=== PATIENT | female | born 1950 | race Caucasian/White ===

== ENCOUNTER → 2016-09-21 | Outpatient (CLI) | payer BC ==
[2014-09-26 12:30] VITALS: BP 156/73
[~2016-09-21] MED LIST: ALLO300T PO; AMLO1CAP15 PO; ASPI81TA44 PO; ATOR40TA59 PO; CA C1TAB38 PO; CELE200C PO; ESTR1TAB17 PO; FERR159T3 PO; FINA1TAB3 PO; FURO20TA3 PO; GLIM4TAB2 PO; HYOS0.124 PO; LIPITOR80 MG PO; METF10002 PO; METO2.5T PO; MULT-658 PO; OMEG1CAP6 PO; OMEP40CA5 PO; OXYC10TA PO; POLY17PO3 PO; POLY17PO5 PO; POTA15TA9 PO; PREG75CA PO; SOLI10TA PO; SUCR1TAB PO; TAPE100T3 PO; TAPE100T6 PO; TIZA4TAB PO; TIZA4TAB8 PO; TRAZ150T55 PO
--- NOTE | 2016-09-21 16:25 | RAD ---
DATE: 09/21/2016 EXAM: MAMMO JEN SCREENING BILATERAL Bilateral digital screening mammography to include digital breast tomosynthesis (3D mammography) HISTORY: Screening study. COMPARISON: 09/19/2015 This study was interpreted with the benefit of Computerized Aided Detection (CAD). FINDINGS: Digital MLO and CC mammograms of both breasts were obtained. Additionally digital breast tomosynthesis (3D mammography) images of both breasts in the MLO and CC projections were performed. Comparison study is dated 09/19/2015. The breast parenchyma is heterogeneously dense which can obscure a lesion on mammography (breast density code C). No spiculated mass is seen. No malignant appearing calcification or area of architectural distortion is noted. Benign-appearing calcifications are seen and throughout both breasts, unchanged. Digital breast tomosynthesis images demonstrate no spiculated mass or malignant appearing calcification. Since the previous examination there has been no significant interval change. IMPRESSION: BI-RADS Category 1, negative. There is no mammographic evidence of malignancy. Routine yearly screening mammography is recommended. BI-RADS CATEGORY: 1 NEGATIVE RECOMMENDED FOLLOW-UP: 12M 12 MONTH FOLLOW-UP PQRS compliance statement: Patient information was entered into a reminder system with a target due date 09/21/2017 for the next mammogram. Mammography is a sensitive method for finding small breast cancers, but it does not detect them all and is not a substitute for careful clinical examination. A negative mammogram does not negate a clinically suspicious finding and should not result in delay in biopsying a clinically suspicious abnormality. "Our facility is accredited by the [employer] Mammography [employer]."
== END | disposition home or self-care (01) ==
LOC: MAMMO 08:00
PROVIDERS: ATTEND Obstetrics & Gynecology
DX: Z12.31 Encounter for screening mammogram for malignant neoplasm of breast (principal)
CPT/HCPCS: 77063; G0202; 77067

== ENCOUNTER → 2016-10-06 | Outpatient (CLI) | payer BC ==
[2014-09-26 12:30] VITALS: BP 156/73
--- NOTE | 2016-10-06 14:52 | RAD ---
Left tibia and fibula, 2 views, 10/06/2016: History: fall, bruising and swelling No fracture is identified. There is moderate subcutaneous edema about the lower leg. Arterial calcifications are present. IMPRESSION: No acute bony abnormality is detected.
== END | disposition home or self-care (01) ==
LOC: DXRADRC 14:18
PROVIDERS: ATTEND Physician Assistant Medical
DX: M79.662 Pain in left lower leg (principal); R52 Pain, unspecified; W19.XXXA Unspecified fall, initial encounter; Y93.89 Activity, other specified; Y92.89 Other specified places as the place of occurrence of the external cause; Y99.8 Other external cause status
CPT/HCPCS: 73590

== ENCOUNTER → 2016-11-18 | Outpatient (CLI) | payer BC ==
[2014-09-26 12:30] VITALS: BP 156/73
--- NOTE | 2016-11-18 12:06 | RAD ---
Indication chronic pain. Preop. Anticipated operative intervention. AP view of the left shoulder was obtained as well as a Y view and an axillary view. There is slight widening at the AC joint. An acute bony finding is not seen. Significant degenerative change at the glenohumeral joint is not seen.
== END | disposition home or self-care (01) ==
LOC: DXRADRC 10:04
PROVIDERS: ATTEND Orthopaedic Surgery Sports Medicine
DX: M25.512 Pain in left shoulder (principal); G89.29 Other chronic pain
CPT/HCPCS: 73030

== ENCOUNTER → 2017-06-16 | Outpatient (CLI) | payer BC ==
[2014-09-26 12:30] VITALS: BP 156/73
[~2017-06-16] MED LIST changes: -HYOS0.124 PO; +HYOS0.1279 PO; -SOLI10TA PO; +SOLI10TA2 PO; -TAPE100T3 PO; -TAPE100T6 PO; +TAPE100T7 PO; +TAPE100T9 PO; +TRAZ150T49 PO; -TRAZ150T55 PO
--- NOTE | 2017-06-16 14:23 | RAD ---
Ultrasound neck soft tissue Indication: Left neck fullness and soreness for 3 months. Technique: Grayscale and color Doppler ultrasound of the left neck base. Comparison: None Findings: No solid or cystic mass seen in the left neck base. There is a 1.7 x 0.6 x 0.4 cm lymph node in the left neck base. Incidental note made of multiple hypoechoic and cystic nodules in the left thyroid lobe. The dominant cystic nodule measures 7.3 x 10.6 x 0.8 cm with internal calcified septation and echogenic foci suggesting punctate calcifications. Impression: No solid or cystic lesion in the left neck base. Incidental note made of left thyroid nodules. Dedicated thyroid ultrasound recommended.
== END | disposition home or self-care (01) ==
LOC: US 12:30
PROVIDERS: ATTEND Physician Assistant Medical
DX: E04.2 Nontoxic multinodular goiter (principal); M54.2 Cervicalgia
CPT/HCPCS: 76536

== ENCOUNTER → 2017-06-27 | Outpatient (CLI) | payer MEDICARE, BC ==
[2014-09-26 12:30] VITALS: BP 156/73
--- NOTE | 2017-06-27 15:18 | RAD ---
Indication: Thyroid nodules. Technique: Thyroid ultrasound was performed. Comparison ultrasound is from June 16, 2017. Findings: Right thyroid lobe measures 5.0 x 1.6 x 2.0 cm and the left 4.8 x 1.7 x 1.8 cm. The isthmus measures 0.3 cm. There are 2 nodules on the right. They are both mixed. The larger of the 2 nodules measures 14 x 13 x 6 mm. There are 2 nodules on the left. One is mixed solid and cystic measuring up to 12 mm in size and the second is cystic measuring 10 mm. Impression: Bilateral thyroid nodules.
== END | disposition home or self-care (01) ==
LOC: US 12:49
PROVIDERS: ATTEND Surgery
DX: E04.2 Nontoxic multinodular goiter (principal)
CPT/HCPCS: 76536

== ENCOUNTER → 2017-09-22 | Outpatient (CLI) | payer MEDICARE, BC ==
[2014-09-26 12:30] VITALS: BP 156/73
--- NOTE | 2017-09-23 10:35 | RAD ---
DATE: September 22, 2017 EXAM: DIGITAL SCREEN BILAT W/CAD HISTORY: Screening study. COMPARISON: 2015 and 2017 This study was interpreted with the benefit of Computerized Aided Detection (CAD). FINDINGS: The breast parenchyma is heterogeneously dense. There are no dominant suspicious masses, suspicious microcalcifications or evidence of architectural distortion. IMPRESSION: No mammographic indicators for malignancy. BI-RADS CATEGORY: 1 NEGATIVE RECOMMENDED FOLLOW-UP: 12M 12 MONTH FOLLOW-UP PQRS compliance statement: Patient information was entered into a reminder system with a target due date September 23, 2018 for the next mammogram. Mammography is a sensitive method for finding small breast cancers, but it does not detect them all and is not a substitute for careful clinical examination. A negative mammogram does not negate a clinically suspicious finding and should not result in delay in biopsying a clinically suspicious abnormality. "Our facility is accredited by the [employer]amm[employer]." The patient's breast density may affect the ability of mammography to detect breast cancer. There are 4 categories of breast density, A, B, C and D. Breast density A means that most of the breast tissue is replaced with adipose tissue and therefore is not dense. Breast density B means that the breast tissue is mildly dense and scattered. Breast density C means that the breast tissue is heterogeneously dense. Breast density D means that the breast tissue is very dense. Breast densities especially C and D may decrease the sensitivity of mammography to detect breast cancer. Therefore, the patient may benefit from 3-D breast mammography (3D breast tomography) as a part of their screening mammogram. Insurance may or may not pay for this additional imaging. The patient's breast density based on today's mammogram is category C.
== END | disposition home or self-care (01) ==
LOC: MAMMO 13:18
PROVIDERS: ATTEND Physician Assistant Medical
DX: Z12.31 Encounter for screening mammogram for malignant neoplasm of breast (principal); I50.9 Heart failure, unspecified; E11.9 Type 2 diabetes mellitus without complications; E78.5 Hyperlipidemia, unspecified
CPT/HCPCS: 77067

== ENCOUNTER → 2017-10-04 | Outpatient (CLI) | payer MEDICARE, BC ==
[2014-09-26 12:30] VITALS: BP 156/73
--- NOTE | 2017-10-04 13:44 | RAD ---
Pelvis with right hip, 3 views, 10/04/2017: History: Hip pain, fall No fracture or dislocation is identified. The hip joint spaces are well-preserved with only minimal marginal spurring. There is mild degenerative change at the symphysis pubis. Degenerative and postsurgical changes are noted in the lower lumbar spine. IMPRESSION: No acute pelvic or right hip abnormality is detected.
== END | disposition home or self-care (01) ==
LOC: DXRAD 10:21
PROVIDERS: ATTEND Physician Assistant Medical
DX: M25.551 Pain in right hip (principal); Z98.890 Other specified postprocedural states; Z91.81 History of falling
CPT/HCPCS: 73502

== ENCOUNTER → 2017-12-15 | Outpatient (CLI) | payer MEDICARE, BC, OTHER ==
[2014-09-26 12:30] VITALS: BP 156/73
[~2017-12-15] MED LIST changes: -ASPI81TA44 PO; +ASPI81TA59 PO; -METF10002 PO; +METF10003 PO
--- NOTE | 2017-12-15 17:01 | RAD ---
THYROID ULTRASOUND History: Thyroid nodules, follow-up Comparison: June 27, 2017 Findings: Multiple sonographic images of the thyroid gland are submitted. Right lobe measured 5.8 x 1.8 x 1.17. Left lobe measured 4.5 x 1.6 x 1.4 cm. There are multiple nodules bilaterally. Dominant heterogeneous partially cystic nodule of the mid left gland measures about 1.2 x 1 x 0.8 cm versus previously about 1.2 x 0.7 x 0.8 cm. Another dominant nodule of the mid to upper left gland measures about 0.9 x 0.9 x 0.5 cm versus previously 1 x 0.6 x 0.7 cm. There is a solid nodule of the mid left gland medially up to 1.2 x 0.4 x 0.6 cm and as well as 2 other small nodules inferiorly with one at 0.7 cm the other up to 0.5 cm. The largest of the these appears to have been present previously, similar of the visualized portion. There are at least 3 more discrete isthmus nodules, largest on the left about 0.5 cm, not measured previously although largest nodule on the left apparently present previously and similar. There at least 4 right nodules, largest superiorly up to 1.2 cm at the mid aspect of the gland up to 1 cm. Previously measured partially cystic inferior right thyroid nodule measures about 1 x 0.9 x 0.7 cm versus previously 1.1 x 0.6 x 1 cm. There are couple of other small nodules on the right present. Impression: 1. There are again bilateral thyroid nodules, dominant nodules which are similar, some other smaller nodules not demonstrated or measured previously although at least a couple which were apparently present previously. Electronically signed by: Tito Carver MD (12/15/2017 4:57 PM) [id number]
== END | disposition home or self-care (01) ==
LOC: US 10:44
PROVIDERS: ATTEND Surgery
DX: E04.2 Nontoxic multinodular goiter (principal); E11.9 Type 2 diabetes mellitus without complications; E78.5 Hyperlipidemia, unspecified
CPT/HCPCS: 76536

== ENCOUNTER → 2018-01-30 | Outpatient (CLI) | payer MEDICARE, OTHER ==
[2014-09-26 12:30] VITALS: BP 156/73
--- NOTE | 2018-01-30 17:41 | RAD ---
INDICATION: Chronic low back pain. TECHNIQUE: 5 view lumbosacral spine series is submitted for review. No recent comparison is available. FINDINGS: There is mild dextrocurvature centered at L2-L3. There is anterior plate and screw fixation of L3 and L4. Interbody bone cage is noted as well. Hardware appears well seated although bone cages not clearly incorporated. Endplate spurring is greatest at L2-L3, with vacuum disc and narrowing of the interspace at this level. There is also prominent spurring at L4-L5. Facet hypertrophy is greatest at L4-L5 and L5-S1. There is no fracture or dislocation. There is atheromatous disease in the aorta. There are clips in the right upper quadrant IMPRESSION: 1. Degenerative changes in the lumbar spine, greatest at L2-L3. 2. Anterior fusion of L3 and L4. Electronically signed by: Edgar Cazares MD (01/30/2018 5:37 PM) [facility]
== END | disposition home or self-care (01) ==
LOC: DXRAD 14:01
PROVIDERS: ATTEND Physician Assistant Medical
DX: M47.896 Other spondylosis, lumbar region (principal); I70.0 Atherosclerosis of aorta; M48.061 Spinal stenosis, lumbar region without neurogenic claudication; E78.5 Hyperlipidemia, unspecified; E11.9 Type 2 diabetes mellitus without complications
CPT/HCPCS: 72110

== ENCOUNTER → 2018-02-16 | Outpatient (CLI) | payer MEDICARE, OTHER ==
[2014-09-26 12:30] VITALS: BP 156/73
--- NOTE | 2018-02-16 15:40 | RAD ---
EXAM: Left hand, 3 views. HISTORY: Pain. COMPARISON: None. FINDINGS: Frontal, lateral and oblique views of the left hand are obtained. There is no fracture, dislocation or subluxation. IMPRESSION: No acute osseous finding. Electronically signed by: Shyanne Patel MD (02/16/2018 3:37 PM) [place] [id number]
== END | disposition home or self-care (01) ==
LOC: PMG 15:18
PROVIDERS: ATTEND Physician Assistant
DX: M79.642 Pain in left hand (principal); E11.9 Type 2 diabetes mellitus without complications; E78.5 Hyperlipidemia, unspecified; Z91.81 History of falling
CPT/HCPCS: 73130

== ENCOUNTER → 2018-06-20 | Outpatient (CLI) | payer MEDICARE, OTHER ==
[2014-09-26 12:30] VITALS: BP 156/73
[~2018-06-20] MED LIST changes: +BUPIVACAINE MPF 0.25% 30 ML VIAL. ONE; +IOHEXOL 300 MG/ML 50 ML VIAL. ONE; +LIDOCAINE 1% PF 30 ML VIAL. ONE; -METF10003 PO; +METF10007 PO; +POLY17PO28 PO; -POLY17PO3 PO; +methylPREDNISolone ACETATE 40 MG/ML VIAL. ONE
== END | disposition home or self-care (01) ==
LOC: SURG 12:33
PROVIDERS: ATTEND Anesthesiology
DX: M46.1 Sacroiliitis, not elsewhere classified (principal); Z88.0 Allergy status to penicillin; Z79.899 Other long term (current) drug therapy; Z79.82 Long term (current) use of aspirin; M47.26 Other spondylosis with radiculopathy, lumbar region; M53.3 Sacrococcygeal disorders, not elsewhere classified
CPT/HCPCS: 82947; G0260; J1030; J2001; J3490; 27096; Q9967

== ENCOUNTER → 2018-07-27 | Outpatient (CLI) | payer MEDICARE, OTHER ==
[2014-09-26 12:30] VITALS: BP 156/73
[~2018-07-27] MED LIST changes: -BUPIVACAINE MPF 0.25% 30 ML VIAL. ONE; -IOHEXOL 300 MG/ML 50 ML VIAL. ONE; -LIDOCAINE 1% PF 30 ML VIAL. ONE; -methylPREDNISolone ACETATE 40 MG/ML VIAL. ONE
[2018-07-27 11:07] LABS: BASO # 0.1 x10^3/uL (0.0-0.2); BASO % 1 % (0-3); EOS # 0.4 x10^3/uL (0.0-0.7); EOS % 7 % (0-3); HEMATOCRIT 36.4 % (36.0-47.0); HEMOGLOBIN 12.2 g/dL (12.0-15.5); LYMPH # 1.8 x10^3/uL (1.0-4.8); LYMPH % 27 % (24-48); MEAN CORPUSCULAR HEMOGLOBIN 31 pg (25-35); MEAN CORPUSCULAR HGB CONC 34 g/dL (31-37); MEAN CORPUSCULAR VOLUME 92 fL (79-100); MONO # 0.5 x10^3/uL (0.0-1.1); MONO % 7 % (0-9); NEUT # 3.8 x10^3uL (1.8-7.7); NEUT % 58 % (31-73); PLATELET COUNT 292 x10^3/uL (140-400); RED BLOOD COUNT 3.95 x10^6/uL (3.50-5.40); RED CELL DISTRIBUTION WIDTH 13.2 % (11.5-14.5); WHITE BLOOD COUNT 6.6 x10^3/uL (4.0-11.0)
[2018-07-27 11:17] LABS: ALBUMIN 3.6 g/dL (3.4-5.0); ALBUMIN/GLOBULIN RATIO 1.1 (1.0-1.7); CALCIUM 8.5 mg/dL (8.5-10.1); CREATININE 1.2 mg/dL (0.6-1.0); GFR 44.9; POTASSIUM 3.9 mmol/L (3.5-5.1); TOTAL BILIRUBIN 0.4 mg/dL (0.2-1.0); TOTAL PROTEIN 6.9 g/dL (6.4-8.2)
[2018-07-27 14:27] LABS: BILIRUBIN,URINE NEG (NEG); CLARITY,URINE HAZY; COLOR,URINE YELLOW; GLUCOSE,URINE NEG (NEG)
[2018-07-27 14:28] LABS: BACTERIA,URINE MANY /HPF (0-FEW); NITRITE,URINE NEG (NEG); RBC,URINE 0 /HPF (0-2); SQUAMOUS EPITHELIAL CELL,UR MANY /LPF; UROBILINOGEN,URINE 0.2 mg/dL (0.2 mg/dL)
[2018-07-27 14:33] LABS: FREE T4 0.86 ng/dL (0.76-1.46); THYROID STIM HORMONE (TSH) 2.975 uIU/mL (0.358-3.740)
[2018-07-27 21:39] LABS: HEMOGLOBIN A1C 6.8 % (4.8-5.6)
== END | disposition home or self-care (01) ==
LOC: LAB 10:12
PROVIDERS: ATTEND Physician Assistant Medical
DX: E13.9 Other specified diabetes mellitus without complications (principal)
CPT/HCPCS: 36415; 80053; 80061; 81001; 83036; 84439; 84443; 84481; 85025

== ENCOUNTER → 2018-08-01 | Outpatient (CLI) | payer MEDICARE, OTHER ==
[2014-09-26 12:30] VITALS: BP 156/73
[~2018-08-01] MED LIST changes: +BUPIVACAINE MPF 0.25% 10 ML VIAL. ONE; +IOHEXOL 300 MG/ML 50 ML VIAL. ONE; +LIDOCAINE 1% PF 30 ML VIAL. ONE; +methylPREDNISolone ACETATE 80 MG/ML VIAL. ONE
== END | disposition home or self-care (01) ==
LOC: SURG 12:53
PROVIDERS: ATTEND Anesthesiology
DX: M25.551 Pain in right hip (principal); M54.5 Low back pain; M25.552 Pain in left hip; G89.29 Other chronic pain; J32.9 Chronic sinusitis, unspecified; J30.2 Other seasonal allergic rhinitis; J18.9 Pneumonia, unspecified organism; I10 Essential (primary) hypertension; M19.90 Unspecified osteoarthritis, unspecified site; R01.1 Cardiac murmur, unspecified; R51 Headache; E11.9 Type 2 diabetes mellitus without complications; K21.9 Gastro-esophageal reflux disease without esophagitis; Z98.890 Other specified postprocedural states; Z79.84 Long term (current) use of oral hypoglycemic drugs; Z79.899 Other long term (current) drug therapy; Z79.82 Long term (current) use of aspirin; Z88.0 Allergy status to penicillin
CPT/HCPCS: 82947; G0260; J1040; J2001; J3490; Q9967; 27096

== ENCOUNTER → 2018-08-07 | Outpatient (CLI) | payer MEDICARE, OTHER ==
[2014-09-26 12:30] VITALS: BP 156/73
[~2018-08-07] MED LIST changes: -BUPIVACAINE MPF 0.25% 10 ML VIAL. ONE; -IOHEXOL 300 MG/ML 50 ML VIAL. ONE; -LIDOCAINE 1% PF 30 ML VIAL. ONE; -methylPREDNISolone ACETATE 80 MG/ML VIAL. ONE
--- NOTE | 2018-08-07 14:06 | RAD ---
Indication: Thyroid nodule follow-up TECHNIQUE: Ultrasound thyroid. COMPARISON: 12/15/2017 FINDINGS: Right-sided: The right thyroid lobe measures 5.0 x 2.0 x 2.0 cm. Nodules as follows: -Complex nodule in the mid thyroid lobe with mixed echogenicity and defined margins measuring 1.2 x 0.9 x 1.1 cm, previously 1.0 x 1.3 x 0.9 cm. -Hypoechoic nodule with well-circumscribed margins in the inferior thyroid lobe measures 1.4 x 0.7 x 0.8 cm, previously 1.0 x 1.0 x 0.7 cm. The isthmus measures 3 mm in thickness and is within normal limits. Hypoechoic oval-shaped nodule measures 0.3 x 0.2 x 0.3 cm, previously 0.3 x 0.3 x 0.2 cm. Another hypoechoic nodule measures 0.6 x 0.4 x 0.5 cm, previously 0.5 x 0.5 x 0.4 cm. The left thyroid lobe measures 5.0 x 1.4 x 1.8 cm. Nodules as follows: 0.7 x 0.7 x 0.4 cm hypoechoic nodule in the medial aspect of the mid left thyroid lobe, previously 1.2 x 0.5 x 0.6 cm. Another cystic-appearing nodule in the lateral aspect of the mid thyroid lobe measuring 0.9 x 0.6 x 1.2 cm, previously 1.2 x 1.0 x 0.8 cm. Another oval-shaped hypoechoic nodule measuring 0.9 x 0.5 x 0.9 cm, previously 0.9 x 0.9 x 0.5 cm. IMPRESSION: Bilateral thyroid nodules with no significant interval change in size as described above. Follow-up ultrasound recommended. Electronically signed by: Leonardo Islas DO (08/07/2018 2:02 PM) [id number]
== END | disposition home or self-care (01) ==
LOC: US 12:29
PROVIDERS: ATTEND Surgery
DX: E04.2 Nontoxic multinodular goiter (principal)
CPT/HCPCS: 76536

== ENCOUNTER → 2018-10-17 | Outpatient (CLI) | payer MEDICARE, OTHER ==
[2014-09-26 12:30] VITALS: BP 156/73
== END | disposition home or self-care (01) ==
LOC: SURG 12:32
PROVIDERS: ATTEND Anesthesiology
DX: M54.16 Radiculopathy, lumbar region (principal); M48.061 Spinal stenosis, lumbar region without neurogenic claudication; I10 Essential (primary) hypertension; M19.90 Unspecified osteoarthritis, unspecified site; E11.9 Type 2 diabetes mellitus without complications; Z79.899 Other long term (current) drug therapy; Z98.1 Arthrodesis status; Z86.2 Personal history of diseases of the blood and blood-forming organs and certain disorders involving the immune mechanism
CPT/HCPCS: 99214

== ENCOUNTER → 2018-12-15 | Outpatient (CLI) | payer MEDICARE, OTHER ==
[2014-09-26 12:30] VITALS: BP 156/73
[~2018-12-15] MED LIST changes: +BUPIVACAINE MPF 0.5% 30 ML VIAL. ONE; +IOHEXOL 300 MG/ML 50 ML VIAL. ONE; +LIDOCAINE 1% PF 30 ML VIAL. ONE; +methylPREDNISolone ACETATE 80 MG/ML VIAL. ONE
== END | disposition home or self-care (01) ==
LOC: SURG 10:42
PROVIDERS: ATTEND Anesthesiology Pain Medicine
DX: M79.18 Myalgia, other site (principal); G57.01 Lesion of sciatic nerve, right lower limb; I10 Essential (primary) hypertension; E11.9 Type 2 diabetes mellitus without complications; R01.1 Cardiac murmur, unspecified; J30.2 Other seasonal allergic rhinitis; M19.90 Unspecified osteoarthritis, unspecified site; Z98.890 Other specified postprocedural states; Z79.84 Long term (current) use of oral hypoglycemic drugs; Z79.899 Other long term (current) drug therapy; Z87.01 Personal history of pneumonia (recurrent); Z72.0 Tobacco use; Z79.82 Long term (current) use of aspirin; Z88.0 Allergy status to penicillin; Z98.1 Arthrodesis status
CPT/HCPCS: 20552; 77002; J1040; J2001; J3490; Q9967

== ENCOUNTER → 2019-01-12 | Outpatient (CLI) | payer MEDICARE, OTHER ==
[2014-09-26 12:30] VITALS: BP 156/73
[~2019-01-12] MED LIST changes: -AMLO1CAP15 PO; +AMLO1CAP54 PO; +BUPIVACAINE MPF 0.25% 10 ML VIAL. ONE; -BUPIVACAINE MPF 0.5% 30 ML VIAL. ONE; -TIZA4TAB PO; +TIZA4TAB2 PO; +methylPREDNISolone ACETATE 40 MG/ML VIAL. ONE; -methylPREDNISolone ACETATE 80 MG/ML VIAL. ONE
== END ==
LOC: SURG 08:59
PROVIDERS: ATTEND Anesthesiology Pain Medicine
DX: M53.3 Sacrococcygeal disorders, not elsewhere classified (principal); I10 Essential (primary) hypertension; K21.9 Gastro-esophageal reflux disease without esophagitis; E11.9 Type 2 diabetes mellitus without complications; Z88.0 Allergy status to penicillin; Z87.39 Personal history of other diseases of the musculoskeletal system and connective tissue; Z87.01 Personal history of pneumonia (recurrent); Z98.890 Other specified postprocedural states; Z79.84 Long term (current) use of oral hypoglycemic drugs
CPT/HCPCS: G0260; J1030; J2001; J3490; Q9967; 27096

== ENCOUNTER → 2019-02-14 | Outpatient (CLI) | payer MEDICARE, OTHER ==
[2014-09-26 12:30] VITALS: BP 156/73
[~2019-02-14] MED LIST changes: -BUPIVACAINE MPF 0.25% 10 ML VIAL. ONE; -IOHEXOL 300 MG/ML 50 ML VIAL. ONE; -LIDOCAINE 1% PF 30 ML VIAL. ONE; -methylPREDNISolone ACETATE 40 MG/ML VIAL. ONE
[2019-02-14 16:09] LABS: BASO # 0.1 x10^3/uL (0.0-0.2); BASO % 1 % (0-3); EOS # 0.3 x10^3/uL (0.0-0.7); EOS % 4 % (0-3); HEMATOCRIT 37.6 % (36.0-47.0); HEMOGLOBIN 12.4 g/dL (12.0-15.5); LYMPH # 2.1 x10^3/uL (1.0-4.8); LYMPH % 27 % (24-48); MEAN CORPUSCULAR HEMOGLOBIN 31 pg (25-35); MEAN CORPUSCULAR HGB CONC 33 g/dL (31-37); MEAN CORPUSCULAR VOLUME 93 fL (79-100); MONO # 0.6 x10^3/uL (0.0-1.1); MONO % 8 % (0-9); NEUT # 4.6 x10^3uL (1.8-7.7); NEUT % 60 % (31-73); PLATELET COUNT 382 x10^3/uL (140-400); RED BLOOD COUNT 4.03 x10^6/uL (3.50-5.40); RED CELL DISTRIBUTION WIDTH 13.2 % (11.5-14.5); WHITE BLOOD COUNT 7.7 x10^3/uL (4.0-11.0)
== END | disposition home or self-care (01) ==
LOC: LAB 15:34
PROVIDERS: ATTEND Physician Assistant Medical
DX: D72.829 Elevated white blood cell count, unspecified (principal)
CPT/HCPCS: 36415; 85025

== ENCOUNTER → 2020-05-02 | Outpatient (CLI) | payer MEDICARE, OTHER ==
[2014-09-26 12:30] VITALS: BP 156/73
[~2020-05-02] MED LIST changes: -GLIM4TAB2 PO; +GLIM4TAB8 PO; +OMEP40CA45 PO; -OMEP40CA5 PO
--- NOTE | 2020-05-02 16:57 | RAD ---
LUMBAR SPINE MIN 4V, THORACIC SPINE 3V History: Back pain Comparison: MRI lumbar spine exam February 22, 2014 Thoracic spine: Findings: 3 views of the thoracic spine are submitted. No acute osseous abnormality is identified by radiographs. Thoracic vertebral body stature and AP alignment are overall maintained. There is very mild dextroscoliosis centered near T5-T6. There is anterior cervical fusion hardware at C4-5 There is degree of degenerative disc disease at C5-6 and C6-7. Impression: 1. No acute osseous abnormality is identified by radiographs. Lumbar spine: FINDINGS: 5 views of the lumbar spine are submitted. There is now intact posterolateral fusion hardware with bilateral pedicle screws L5, L4, L3, and L2. There is again anterior plate and screws at L3-4. There are interbody grafts L2-3, L3-4, L4-5. There is superior L1 endplate concavity not apparent on the previous exam. There is mild lumbar dextroscoliosis. There is atherosclerotic calcification of the abdominal aorta. IMPRESSION: 1.There is intact multilevel lumbar hardware as stated. There is now superior L1 endplate concavity which could be due to more recent compression fracture for which correlation with any point tenderness advised.. Electronically signed by: Tito Carver MD (05/02/2020 4:54 PM) [facility]
== END ==
LOC: RAD 16:06
PROVIDERS: ATTEND Physician Assistant Medical
DX: M50.322 Other cervical disc degeneration at C5-C6 level (principal); I70.0 Atherosclerosis of aorta; M41.85 Other forms of scoliosis, thoracolumbar region
CPT/HCPCS: 72072; 72110

== ENCOUNTER → 2020-10-24 | Outpatient (CLI) | payer MEDICARE, OTHER ==
[2014-09-26 12:30] VITALS: BP 156/73
[~2020-10-24] MED LIST changes: -POLY17PO28 PO; +POLY17PO52 PO
--- NOTE | 2020-10-25 09:26 | RAD ---
EXAM: XR SHOULDER_LEFT 2+ VIEWS 10/24/2020 1:45 PM CLINICAL INDICATION: DJD left shoulder pain COMPARISON: None TECHNIQUE: 3 views of the left shoulder FINDINGS: No acute fracture. Alignment is normal. Glenohumeral joint is maintained. There is a small cyst in the glenoid. Suspect prior subacromial decompression. The acromiohumeral distance is normal. Some nonspecific soft tissue calcifications are seen in the supraclavicular region. IMPRESSION: No acute osseous abnormality or significant degenerative joint disease. Electronically signed by: Asmita Morrison MD (10/25/2020 9:24 AM) [id number]
== END ==
LOC: RAD 13:32
PROVIDERS: ATTEND Physician Assistant Medical
DX: M25.812 Other specified joint disorders, left shoulder (principal); M79.89 Other specified soft tissue disorders
CPT/HCPCS: 73030

== ENCOUNTER → 2020-12-03 | Day surgery (SDC) | payer MEDICARE, OTHER ==
[2020-12-03 10:36] VITALS: BP 151/68
== END | disposition home or self-care (01) ==
LOC: SURG 10:25
PROVIDERS: ATTEND Anesthesiology
DX: M54.9 Dorsalgia, unspecified (principal); G89.4 Chronic pain syndrome; M19.90 Unspecified osteoarthritis, unspecified site; E11.9 Type 2 diabetes mellitus without complications; D64.9 Anemia, unspecified; I11.0 Hypertensive heart disease with heart failure; I50.9 Heart failure, unspecified; E03.0 Congenital hypothyroidism with diffuse goiter; K21.9 Gastro-esophageal reflux disease without esophagitis; Z79.899 Other long term (current) drug therapy; Z98.1 Arthrodesis status; Z87.81 Personal history of (healed) traumatic fracture; Z72.89 Other problems related to lifestyle; Z88.0 Allergy status to penicillin; Z79.82 Long term (current) use of aspirin; Z79.84 Long term (current) use of oral hypoglycemic drugs; Z91.81 History of falling; Z87.01 Personal history of pneumonia (recurrent); Z82.49 Family history of ischemic heart disease and other diseases of the circulatory system
CPT/HCPCS: 99214; G0463

== ENCOUNTER → 2020-12-22 | Outpatient (CLI) | payer MEDICARE, OTHER ==
[2020-12-03 10:36] VITALS: BP 151/68
[~2020-12-22] MED LIST changes: +DENO60DI SQ; -OMEP40CA45 PO; +OMEP40CA7 PO
--- NOTE | 2020-12-22 15:20 | RAD ---
EXAM: THYROID ULTRASOUND. HISTORY: Thyroid nodule. COMPARISON: 07/29/2018. FINDINGS: Sonographic evaluation of the thyroid gland was performed and evaluated using ACR TI-RADS c riteria. Right lobe: The right lobe measures 4.8 x 1.7 x 1.6 cm. The parenchyma is homogeneous. Multiple cysti c and spongiform nodules appear benign. A spongiform nodule with a hypoechoic solid portion along its inferior periphery measures 15 x 14 x 8 mm. There is no internal perfusion. Another similar nodule m easures 15 x 10 x 9 mm and also demonstrates no internal perfusion. These are not definitively change d given measurement placement. Left lobe: The left lobe measures 3.9 x 1.5 x 1.5 cm. The parenchyma is homogeneous. Cystic nodules m easure up to 15 x 12 x 9 mm and appear benign. Some have increased by 3 mm or less but appear benign. Isthmus: The isthmus measures 4 mm. A solid hypoechoic nodule along the left aspect of the isthmus me asures 6 x 7 x 5 mm, is stable, and also demonstrates no clear internal perfusion. This is likely laura ign, complicated cyst. IMPRESSION/RECOMMENDATION: 1. Multiple cystic and spongiform nodules bilaterally measure up to 1.5 cm, are mostly stable since 2 019, and likely benign. Follow-up could be considered in 1-2 years if there is persistent concern. Electronically signed by: Dee Feliz MD (12/22/2020 3:18 PM) [id number]
== END ==
LOC: US 12:47
PROVIDERS: ATTEND Physician Assistant Medical
DX: E04.2 Nontoxic multinodular goiter (principal)
CPT/HCPCS: 76536

== ENCOUNTER → 2020-12-31 | Day surgery (SDC) | payer MEDICARE, OTHER ==
[~2020-12-31] MED LIST changes: +BUPIVACAINE MPF 0.25% 10 ML VIAL. ONE; +LIDOCAINE 1% PF 30 ML VIAL. ONE; +methylPREDNISolone ACETATE 40 MG/ML VIAL. ONE
[2020-12-31 15:10] VITALS: BP 170/84
== END | disposition home or self-care (01) ==
LOC: SURG 14:24
PROVIDERS: ATTEND Anesthesiology
DX: M79.18 Myalgia, other site (principal); I11.0 Hypertensive heart disease with heart failure; E11.9 Type 2 diabetes mellitus without complications; I50.9 Heart failure, unspecified; E78.5 Hyperlipidemia, unspecified; E03.0 Congenital hypothyroidism with diffuse goiter; K21.9 Gastro-esophageal reflux disease without esophagitis; M19.90 Unspecified osteoarthritis, unspecified site; Z87.01 Personal history of pneumonia (recurrent); Z91.81 History of falling; M48.061 Spinal stenosis, lumbar region without neurogenic claudication; Z88.0 Allergy status to penicillin; Z79.899 Other long term (current) drug therapy; Z98.1 Arthrodesis status; Z82.49 Family history of ischemic heart disease and other diseases of the circulatory system
CPT/HCPCS: 20553; J1030; J3490

== ENCOUNTER → 2021-02-11 | Outpatient (CLI) | payer MEDICARE, OTHER ==
[2020-12-31 15:10] VITALS: BP 170/84
[~2021-02-11] MED LIST changes: -BUPIVACAINE MPF 0.25% 10 ML VIAL. ONE; -LIDOCAINE 1% PF 30 ML VIAL. ONE; -methylPREDNISolone ACETATE 40 MG/ML VIAL. ONE
--- NOTE | 2021-02-11 15:39 | RAD ---
EXAM: 3 views of the left elbow DATE: 02/11/2021 2:29 PM INDICATION: Reason: LEFT ELBOW PAIN / Spl. Instructions: / History: COMPARISON: No Prior FINDINGS: No elbow joint effusion. No acute fracture or dislocation. No significant soft tissue swelling. IMPRESSION: No acute fracture or dislocation. Electronically signed by: Nigel Kinney MD (02/11/2021 3:37 PM) [id number]
== END ==
LOC: RAD 14:15
PROVIDERS: ATTEND Physician Assistant Medical
DX: M25.522 Pain in left elbow (principal)
CPT/HCPCS: 73080

== ENCOUNTER → 2021-07-22 | Outpatient (CLI) | payer MEDICARE, OTHER ==
[2020-12-31 15:10] VITALS: BP 170/84
[~2021-07-22] MED LIST changes: +AMLO-54 PO; -AMLO1CAP54 PO; +TIZA-75 PO; -TIZA4TAB2 PO
--- NOTE | 2021-07-23 13:42 | RAD ---
Exam Date: 07/22/2021 10:50 AM XR BILAT FEET 3 VIEWS Indication: Reason: WEIGHTBEARING -PAIN / Spl. Instructions: / History: . FINDINGS/ IMPRESSION: No acute fracture or dislocation. Mild degenerative changes are noted bilaterally. Postoperative ch anges are noted in the right foot. Alignment is maintained. Bones demonstrate normal mineralization bilaterally. No significant erosive changes are seen on either side. The soft tissues are within n ormal limits. Electronically signed by: Leonel Melo MD (07/23/2021 1:39 PM) [id number]
== END ==
LOC: RAD 10:44
PROVIDERS: ATTEND Podiatrist Foot & Ankle Surgery
DX: M19.071 Primary osteoarthritis, right ankle and foot (principal); M19.072 Primary osteoarthritis, left ankle and foot; Z98.890 Other specified postprocedural states
CPT/HCPCS: 73630-50

== ENCOUNTER → 2021-10-14 | Outpatient (CLI) | payer MEDICARE, OTHER ==
[2020-12-31 15:10] VITALS: BP 170/84
--- NOTE | 2021-10-15 16:13 | RAD ---
EXAM: ULTRASOUND SOFT TISSUE NECK CLINICAL HISTORY: THYROID ENLARGEMENT COMPARISON: Thyroid ultrasound 12/22/2020 and other ultrasounds dating back to 06/27/2017 TECHNIQUE: Ultrasound examination of the thyroid gland was performed FINDINGS: Sonographic evaluation of the thyroid gland was performed and evaluated using ACR TI-RADS criteria. The right thyroid lobe measures 4.9 x 1.8 x 1.7 cm. The left thyroid lobe measures 3.8 x 1.6 x 1.3 cm . The isthmus measures 0.4 cm. There are multiple bilateral thyroid nodules. The largest in each lobe described: Nodule #1: Location: Inferior right thyroid lobe Size: 1.6 x 1.3 x 1.2 cm Composition: Cystic and solid Echogenicity: Isoechoic Margins: Smooth Shape: Wider than tall Echogenic foci: None TI-RADS: 2 There is a similar-appearing nodule in the mid right thyroid lobe measuring 0.8 cm. Nodule #2: Location: Mid left thyroid lobe Size: 1.4 x 1.0 x 0.9 cm Composition: Almost entirely cystic, with a few internal septations. Echogenicity: Anechoic Margins: Smooth Shape: Wider than tall Echogenic foci: None TI-RADS: 1 There is a similar-appearing cyst in the inferior left thyroid lobe measuring 0.6 cm. IMPRESSION: Stable bilateral TI RADS 1 and 2 thyroid nodules. ACR TI-RADS risk category: TR2 (2 points): No fine-needle aspiration or follow-up required . Electronically signed by: Asmita Morrison MD (10/15/2021 4:10 PM) [id number]
== END ==
LOC: US 15:39
PROVIDERS: ATTEND Physician Assistant Medical
DX: E04.2 Nontoxic multinodular goiter (principal)
CPT/HCPCS: 76536